=== PATIENT | female | born 1975 | race Caucasian/White ===

== ENCOUNTER 2017-02-09 11:46 | Emergency (ER) | payer OTHER ==
[~2017-02-09] VITALS: Ht 167.6 cm; Wt 74.4 kg
[~2017-02-09 11:46] MED LIST: SUMA100T16 PO
[2017-02-09] MEDS ORDERED: HYDROMORPHONE 1 MG/1 ML DISP.SYRIN IM ONE (12:45)
--- NOTE | 2017-02-09 12:48 | NUR ---
Patient is AOx4, calm and breathing easily, pt refused MD Jhonny notified.
[2017-02-09] MEDS ORDERED: LORAZEPAM 0.5 MG TABLET PO ONE (13:00)
[2017-02-09] MEDS ORDERED: HYDROMORPHONE 2 MG/1 ML DISP.SYRIN ONE (13:00)
[2017-02-09] MEDS ORDERED: LORAZEPAM 1 MG TABLET ONE (13:09)
--- NOTE | 2017-02-09 13:35 | NUR ---
Patient discharged to home in stable conditon. Written and verbal after care instructions given to patient. Patient verbalizes understanding of instructions. Patient left ER with brisk steady gait.
== END 2017-02-09 13:36 | disposition home or self-care (01) ==
LOC: ER 11:46
DX: S16.1XXA Strain of muscle, fascia and tendon at neck level, initial encounter (principal); G43.909 Migraine, unspecified, not intractable, without status migrainosus; V43.62XA Car passenger injured in collision with other type car in traffic accident, initial encounter; Y92.410 Unspecified street and highway as the place of occurrence of the external cause; Y93.89 Activity, other specified; Y99.8 Other external cause status
CPT/HCPCS: 72040; 99284; A4663; J1170

== ENCOUNTER 2017-03-27 17:26 | Emergency (ER) | payer OTHER ==
[~2017-03-27] VITALS: Ht 167.6 cm; Wt 74.4 kg
[2017-03-27] MEDS ORDERED: NEOMY/BACITRA/POLYMYXIN B OINT UD PACKET TP ONE ×2 (18:15→18:29)
[2017-03-27 18:20] VITALS: BP 114/62
--- NOTE | 2017-03-27 18:20 | NUR ---
Patient discharged to home in stable conditon. Written and verbal after care instructions given. Patient verbalizes understanding of instructions.
== END 2017-03-27 18:22 | disposition home or self-care (01) ==
LOC: ER 17:26
DX: L60.0 Ingrowing nail (principal); G43.909 Migraine, unspecified, not intractable, without status migrainosus
CPT/HCPCS: 99283; A4663

== ENCOUNTER 2018-05-10 08:50 | Emergency (ER) | payer OTHER ==
[~2018-05-10] VITALS: Ht 167.6 cm; Wt 77.1 kg
--- NOTE | 2018-05-10 09:06 | NUR ---
Dr Garcia into eval patient
[2018-05-10] MEDS ORDERED: PROCHLORPERAZINE EDISYLATE 10 MG/2 ML VIAL IV ONE (09:15)
[2018-05-10] MEDS ORDERED: IV NORMAL SALINE 1000 ML BAG IV ONE (09:15)
[2018-05-10] MEDS ORDERED: PROCHLORPERAZINE EDISYLATE 10 MG/2 ML VIAL ONE (09:26)
[2018-05-10] MEDS ORDERED: PANTOPRAZOLE SODIUM 40 MG VIAL ONE (09:26)
[2018-05-10 09:28] LABS: BASOPHILS % (AUTO) 0.3 % (0.0-2.0); EOSINOPHILS # (AUTO) 0.1 K/uL (0.0-0.7); EOSINOPHILS % (AUTO) 3.1 % (0.0-7.0); HEMATOCRIT 43.2 % (31.2-41.9); HEMOGLOBIN 14.5 g/dL (10.9-14.3); LYMPHOCYTES # (AUTO) 0.9 K/uL (20.0-40.0); MEAN CORPUSCULAR HEMOGLOBIN 30.1 uug (24.7-32.8); MEAN CORPUSCULAR HGB CONC 34 g/dL (32.3-35.6); MEAN CORPUSCULAR VOLUME 89.5 fL (75.5-95.3); MONOCYTES # (AUTO) 0.3 K/uL (2.0-10.0); MONOCYTES % (AUTO) 9.2 % (0.0-11.0); NEUTROPHILS % (AUTO) 61.4 % (38.5-71.5); PLATELET COUNT (AUTO) 188 K/uL (179-408); RED BLOOD CELL COUNT(AUTO) 4.83 MIL/uL (3.63-4.92); WHITE BLOOD COUNT (AUTO) 3.3 K/uL (3.8-11.8)
[2018-05-10] MEDS ORDERED: PANTOPRAZOLE SODIUM IV 40 MG in IV DEXTROSE 5% 100 ML IV ONE (09:30)
[2018-05-10 09:37] LABS: CREATININE 0.7 mg/dL (0.6-1.3); POTASSIUM 3.6 mmol/L (3.5-5.1)
[2018-05-10 09:43] LABS: BILIRUBIN,DIRECT 0.1 mg/dL (0.0-0.2); BILIRUBIN,TOTAL 0.5 mg/dL (0.2-1.0); TOTAL PROTEIN, SERUM 7.2 g/dL (6.4-8.2)
[2018-05-10 10:25] LABS: *BILIRUBIN,URIN NEGATIVE (NEGATIVE); *BLOOD, URINE NEGATIVE (NEGATIVE); *CLARITY,URINE CLEAR (CLEAR); *COLOR,URINE YELLOW (YELLOW); *KETONES,URINE NEGATIVE (NEGATIVE); *UROBILINOGEN,URINE 0.2 E.U./dl (NORMAL); LEUKOCYTE ESTERASE ,URINE NEGATIVE (NEGATIVE); NITRITE, URINE NEGATIVE (NEGATIVE); PH,URINE 5.5 (5.0-8.0); UGLUCOSE NEGATIVE (NEGATIVE)
[2018-05-10 10:26] LABS: *URINE HCG, QUAL NEGATIVE (NEGATIVE)
[2018-05-10 10:27] LABS: BACTERIA,URINE FEW /HPF (NONE SEEN); RBC,URINE NONE SEEN /HPF (0-3); SQUAMOUS EPITHELIAL CELL,UR FEW /HPF (NONE SEEN); WBC,URINE NONE SEEN /HPF (0-3)
[2018-05-10] MEDS ORDERED: KETOROLAC TROMETHAMINE 30 MG INJ IVP ONE (10:45)
[2018-05-10] MEDS ORDERED: KETOROLAC TROMETHAMINE 30 MG INJ ONE (10:50)
--- NOTE | 2018-05-10 11:30 | NUR ---
US tech at bedside
--- NOTE | 2018-05-10 12:16 | NUR ---
IV removed. Catheter intact and site benign. Pressure and 4x4 gauze applied to site. No bleeding noted.
--- NOTE | 2018-05-10 12:19 | NUR ---
Patient discharged to home in stable conditon with taking patient. Written and verbal after care instructions given. Patient verbalizes understanding of instructions. Walked out of ER with no distress noted
[2018-05-10 12:24] VITALS: BP 128/77
== END 2018-05-10 12:24 | disposition home or self-care (01) ==
LOC: ER 08:50
DX: R10.9 Unspecified abdominal pain (principal); G43.909 Migraine, unspecified, not intractable, without status migrainosus; Z79.899 Other long term (current) drug therapy
CPT/HCPCS: 36415; 76856; 80048; 80076; 81001; 83690; 84703; 85025; 96365; 96375; 99284; C9113; J0780; J1885; J7060; A4663; J7030

== ENCOUNTER 2020-07-09 19:41 | Emergency (ER) | payer OTHER ==
[~2020-07-09] VITALS: Ht 162.6 cm; Wt 74.4 kg
[2020-07-09] MEDS ORDERED: ONDANSETRON ODT 4 MG TAB.RAPDIS SL ONE (20:00)
[2020-07-09] MEDS ORDERED: HYDROCODONE/APAP 5-325MG TABLET PO ONE (20:00)
[2020-07-09] MEDS ORDERED: ONDANSETRON ODT 4 MG TAB.RAPDIS ONE (20:34)
[2020-07-09] MEDS ORDERED: HYDROCODONE/APAP 5-325MG TABLET ONE (20:34)
[2020-07-09] MEDS ORDERED: IBUP-1955 PO (20:35)
[2020-07-09] MEDS ORDERED: HYDR-4209 PO (20:35)
[2020-07-09] MEDS ORDERED: CYCL10TA9 PO (20:35)
[2020-07-09] MEDS ORDERED: IBUPROFEN 600 MG TABLET PO ONE (20:45)
[2020-07-09] MEDS ORDERED: IBUPROFEN 600 MG TABLET ONE (20:52)
--- NOTE | 2020-07-09 22:02 | NUR ---
Patient discharged to home in stable condition. Written and verbal after care instructions given. Patient verbalizes understanding of instructions. Stressed follow up or return to ER for worsening s/s.
== END 2020-07-09 22:03 | disposition home or self-care (01) ==
LOC: ER 19:42
DX: M54.5 Low back pain (principal); M25.511 Pain in right shoulder; S80.01XA Contusion of right knee, initial encounter; V43.52XA Car driver injured in collision with other type car in traffic accident, initial encounter; Y93.89 Activity, other specified; Y92.481 Parking lot as the place of occurrence of the external cause; M25.562 Pain in left knee; F41.9 Anxiety disorder, unspecified; Z86.69 Personal history of other diseases of the nervous system and sense organs
CPT/HCPCS: 72110; 73030; A4663; Q0162

== ENCOUNTER 2021-01-09 22:26 | Emergency (ER) | payer MEDICAID, OTHER ==
[~2021-01-09] VITALS: Ht 167.6 cm; Wt 71.7 kg
[~2021-01-09 22:26] MED LIST changes: +CYCL10TA9 PO; +HYDR-4209 PO; +IBUP-1955 PO
[2021-01-09] MEDS ORDERED: KETOROLAC TROMETHAMINE 60 MG INJ IM ONE ×2 (23:00→23:26)
--- NOTE | 2021-01-09 23:00 | NUR ---
Patient ambulated with steady gait. A/Ox4, came for c/o migraine headache.
[2021-01-10] MEDS ORDERED: HYDR-4209 PO (00:08)
[2021-01-10] MEDS ORDERED: HYDROCODONE/APAP 5-325MG TABLET ONE (00:15)
[2021-01-10] MEDS ORDERED: HYDROCODONE/APAP 5-325MG TABLET PO ONE (00:15)
--- NOTE | 2021-01-10 01:13 | NUR ---
Patient discharged to home in stable condition. Written and verbal after care instructions given. Patient verbalizes understanding of instructions. Stressed follow up or return to ER for worsening s/s. Instructed patient that she may not drive due to the medications administered today. All belongings returned to patient prior to discharge. Patient ambulated with steady gait. Per patient her will be taking her home.
[2021-01-10 01:15] VITALS: BP 131/88
== END 2021-01-10 01:16 | disposition home or self-care (01) ==
LOC: ER 22:28
DX: G43.909 Migraine, unspecified, not intractable, without status migrainosus (principal)
CPT/HCPCS: 96372; 99283; J1885; A4663